=== PATIENT | male | born 1945 | race Caucasian/White ===

== ENCOUNTER → 2019-07-18 11:23 | Outpatient (BNVA) | payer MEDICARE, OTHER, SELFPAY | PROVIDERS: PCP Family Medicine; Referring Provider Otolaryngology; Visit Provider Nurse Practitioner | DX: R42 Dizziness and giddiness (principal); R29.90 Unspecified symptoms and signs involving the nervous system; Z87.891 Personal history of nicotine dependence | CPT/HCPCS: 99205; 99999 ==

== ENCOUNTER 2019-07-21 08:44 | Outpatient (CLI) | payer MEDICARE, OTHER, SELFPAY ==
--- NOTE | 2019-07-21 09:00 | CT_ITS ---
WS: [id number] CTA HEAD AND NECK TECHNIQUE: Contrast enhanced CTA of the head and neck with coronal and sagittal reformatted images an d maximum intensity projection (MIP) images. NASCET criteria utilized. CLINICAL INFORMATION: Dizziness COMPARISON: MRI May 27, 2019 DLP: 1125.[address] scans at [facility] use at least one of these dose optimization techniques: automat ed exposure control; mA and/or kV adjustment per patient size (includes targeted exams where dose is matched to clinical indication); or iterative reconstruction. FINDINGS: Noncontrast CT head. No evidence of intracranial hemorrhage or mass effect. Moderate small vessel changes. Moderate parenchymal volume loss. Intracranial vascular calcification. RIGHT: Right common carotid artery is patent. No significant right ICA stenosis. Mild calcified ather omatous disease right carotid bulb. Right ICA is patent to the skull base. LEFT: Left common carotid artery is patent. Mild calcified atheromatous disease left carotid bulb. No significant left ICA stenosis. Left ICA is patent to the skull base. INTRACRANIAL CTA: Left dominant vertebral artery. Smaller but patent right vertebral artery. Basilar artery is patent. Normal vascularity to the [employer] territory bilaterally. ICAs are patent at the skull base. Mild cavernous carotid calcification. Normal vascularity to the AC A and MCA territories bilaterally. Patent anterior communicating artery. No evidence of high-grade pr oximal stenosis or aneurysm. CT/CT angio headneck* [id number] IMPRESSION: 1. Moderate small vessel changes moderate parenchymal volume loss. 2. No significant ICA stenosis bilaterally. 3. Normal intracranial CTA. 4. Left dominant vertebral artery. Smaller but patent right vertebral artery.
[2019-07-21 09:26] LABS: Blood Urea Nitrogen 16 mg/dL (8-23)
[2019-07-21] MEDS: iodixanol 320 mg/mL 100mL Btl IV (09:39)
== END 2019-07-21 08:45 | disposition home or self-care (01) ==
LOC: RADWPI 08:50
PROVIDERS: PCP Family Medicine; Visit Provider Nurse Practitioner
DX: R42 Dizziness and giddiness (principal)
CPT/HCPCS: 70496; 70498; 82565; 84520; Q9967